=== PATIENT | female | born 1955 | race Caucasian/White ===

== ENCOUNTER 2017-02-19 20:21 | Emergency (ER) | payer OTHER ==
[~2017-02-19] VITALS: Ht 167.6 cm; Wt 64.9 kg
[~2017-02-19 20:21] MED LIST: ALBU0.0952 IH; CARI350T PO; FLUT1DSK2 IH; HYDR25TA PO; SYN.025 PO; TEMA15CA24 PO; [UNRECOGNIZED DRUG - CODE] PO; [UNRECOGNIZED DRUG - REMARK]
[2017-02-19 20:44] VITALS: BP 100/58
--- NOTE | 2017-02-19 22:10 | NUR ---
TO MARJAN SINCLAIR FROM ER HECTOR
--- NOTE | 2017-02-19 22:15 | NUR ---
PT IS 61/F BIBA C/O POSSIBLE ALLERGIC REACTION x 1800. PT STATES SHE WAS AT THE [facility] OFFICE AND RECIEVED AN ABX SHOT AND HAS TAKEN RX OF LEVOFLOXIN 500MG TAB. STATES SHE MADE IT HOME AND STARTED FEELING HOT AND PASSED OUT. DENIES D; SKIN IS WARM/DRY; AAOX4 WITH EVEN AND STEADY GAIT; LUNGS CLEAR BL; HR EVEN AND REGULAR; PT DENIES ANY FEVER, CP, SOB, OR COUGH AT THIS TIME; PATIENT STATES PAIN OF 8/10 AT THIS TIME; VSS; PATIENT POSITIONED FOR COMFORT.
[2017-02-19] MEDS ORDERED: NACL 0.9% 1,000 ML IV ONE (23:00)
[2017-02-19] MEDS ORDERED: ONDANSETRON 4 MG/2 ML VIAL IVP ONE (23:00)
--- NOTE | 2017-02-19 23:00 | NUR ---
MOVED TO ER BED 3
--- NOTE | 2017-02-19 23:05 | NUR ---
PT TAKEN TO X-RAY VIA WHEELCHAIR
[2017-02-19] MEDS ORDERED: METOCLOPRAMIDE 10 MG/2 ML INJ VIAL IVP ONE (23:10)
--- NOTE | 2017-02-19 23:40 | NUR ---
MOVED TO ER BED 8
[2017-02-19 23:50] LABS: HEMATOCRIT 42.8 % (36-48); HEMOGLOBIN 14.3 g/dL (12.0-16.0); MEAN CORPUSCULAR HEMOGLOBIN 31 pg (27-31); MEAN CORPUSCULAR HGB CONC 33 g/dL (33-37); MEAN CORPUSCULAR VOLUME 92 fL (80-94); PLATELET COUNT (AUTO) 517 K/uL (140-450); RED BLOOD CELL COUNT(AUTO) 4.67 MIL/uL (4.20-5.40); RED CELL DISTRIBUTION WIDTH 12.6 % (11.6-13.7); WHITE BLOOD COUNT (AUTO) 25.8 K/uL (4.8-10.8)
[2017-02-19 23:58] LABS: BAND % (MANUAL) 9 % (0-8); LYMPHOCYTES % (MANUAL) 5 % (20-46); MONOCYTES % (MANUAL) 5 % (5-12); NEUTROPHILS % (MANUAL) 81 (43-65)
[2017-02-20 00:06] LABS: ANION GAP 14.8 (8-16); CALCIUM 8.5 mg/dL (8.5-10.1); CARBON DIOXIDE 28.5 mmol/L (21-32); CREATININE 0.9 mg/dL (0.6-1.3); POTASSIUM 3.3 mmol/L (3.5-5.1)
[2017-02-20 00:11] LABS: ALBUMIN 3.8 g/dL (3.4-5.0); TOTAL BILIRUBIN 0.1 mg/dL (0.0-1.0); TOTAL PROTEIN, SERUM 7.8 g/dL (6.4-8.2)
[2017-02-20 00:13] LABS: INR 1.1 (0.8-1.2); PARTIAL THROMBOPLASTIN TIME 22.4 secs (22-35.6); PROTHROMBIN TIME 10.5 secs (10.8-13.4)
[2017-02-20 00:45] VITALS: BP 114/62
--- NOTE | 2017-02-20 00:45 | NUR ---
Patient discharged with v/s stable. Written and verbal after care instructions given and explained. Patient verbalized understanding. Ambulatory with steady gait. All questions addressed prior to discharge. Advised to follow up with PMD.
== END 2017-02-20 00:45 | disposition home or self-care (01) ==
LOC: MED 20:21
DX: T50.995A Adverse effect of other drugs, medicaments and biological substances, initial encounter (principal); J45.909 Unspecified asthma, uncomplicated; I10 Essential (primary) hypertension; Z88.6 Allergy status to analgesic agent; Z79.899 Other long term (current) drug therapy; Y92.89 Other specified places as the place of occurrence of the external cause
CPT/HCPCS: 36415; 71010; 80053; 85025; 85610; 85730; 96374; 99285; J2765; J7030

== ENCOUNTER 2017-07-03 18:38 | Inpatient (IN) | payer OTHER ==
[~2017-07-03] VITALS: Ht 167.6 cm; Wt 84.4 kg
[2017-07-03] MEDS: NACL 0.9% 1,000 ML IV SCH (00:30)
--- NOTE | 2017-07-03 18:38 | NUR ---
Patient was BIBA at this time.
[2017-07-03 18:48] VITALS: BP 94/63
--- NOTE | 2017-07-03 19:39 | NUR ---
61 Y PT BIBA FOR EVALUATION OF ALLERGIC REACTION. PT STATES SHE TOOK LEVAQUIN AND IMMEDIATELY BROKE OUT IN HIVES AND BECAME SOB. HX HTN, FIBROMYALGIA AND RECENT DX OF PNEUMONIA. PT DENIES ANY N/V/D, CP AT THE MOMENT. PT AAOX4.
--- NOTE | 2017-07-03 19:39 | NUR ---
PT STATES HER DELIVERED EPIPEN IM TO PT AT HOME WHEN RASH AND HIVES BEGAN TO SURFACE.
[2017-07-03] MEDS ORDERED: methylPREDNISolone SS 125 MG in WATER STERILE 2 ML IV ONE (20:05)
[2017-07-03] MEDS ORDERED: KETOROLAC 30 MG/ML VIAL IVP ONE (20:05)
--- NOTE | 2017-07-03 20:40 | NUR ---
X-Ray at bedside.
--- NOTE | 2017-07-03 20:45 | NUR ---
XRAY JUST LEFT BEDSIDE
[2017-07-03] MEDS ORDERED: AZITHROMYCIN 500 MG in DEXTROSE 5% 250 ML IV ONE (20:50)
[2017-07-03] MEDS ORDERED: PIPERACILLIN/TAZOBACTAM 3.375 GM in DEXTROSE 5% 50 ML IV ONE (20:50)
--- NOTE | 2017-07-03 20:56 | NUR ---
Fanta dvei in ED - 07/03/17 at 2059 by ZI PT LEFT TO CT VIA WC ACCOMPANIED BY TEST FIXTURE ASSEMBLER
[2017-07-03] MEDS ORDERED: PIPERACILLIN/TAZOBACTAM 3.375 GM VIAL IV ONE (21:08)
[2017-07-03 21:36] LABS: HEMATOCRIT 41.8 % (36-48); HEMOGLOBIN 13.9 g/dL (12.0-16.0); MEAN CORPUSCULAR HEMOGLOBIN 30 pg (27-31); MEAN CORPUSCULAR HGB CONC 33 g/dL (33-37); MEAN CORPUSCULAR VOLUME 90 fL (80-94); PLATELET COUNT (AUTO) 514 K/uL (140-450); RED BLOOD CELL COUNT(AUTO) 4.64 MIL/uL (4.20-5.40); RED CELL DISTRIBUTION WIDTH 12.2 % (11.6-13.7); WHITE BLOOD COUNT (AUTO) 24.1 K/uL (4.8-10.8)
[2017-07-03] MEDS ORDERED: AZITHROMYCIN 500 MG INJ VIAL IV ONE (21:40)
[2017-07-03 21:45] LABS: ANION GAP 13.6 (8-16); CARBON DIOXIDE 26.5 mmol/L (21-32); CREATININE 0.9 mg/dL (0.6-1.3); POTASSIUM 3.1 mmol/L (3.5-5.1)
[2017-07-03] MEDS ORDERED: ONDANSETRON 4 MG/2 ML VIAL IM/IVP PRN (21:50)
[2017-07-03] MEDS ORDERED: DOCUSATE SODIUM 100 MG GELCAP PO PRN (21:50)
[2017-07-03] MEDS ORDERED: ACETAMINOPHEN 325 MG TAB PO PRN (21:50)
[2017-07-03] MEDS ORDERED: ALBUTEROL SULFATE/IPRATROPIU 3 ML SOL IH PRN (21:50)
[2017-07-03] MEDS ORDERED: KETOROLAC 30 MG/ML VIAL IVP PRN (21:50)
[2017-07-03 21:52] LABS: ALBUMIN 3.8 g/dL (3.4-5.0); LYMPHOCYTES % (MANUAL) 6 % (20-46); MONOCYTES % (MANUAL) 5 % (5-12); PROMYELOCYTES % 1 % (0-0); TOTAL BILIRUBIN 0.2 mg/dL (0.0-1.0)
[2017-07-03] MEDS ORDERED: NON-FORMULARY ITEM (Fluticasone/Salmeterol* (Advair 250-50 Diskus*) 1 DSK) IH SCH (23:00)
[2017-07-03] MEDS ORDERED: ALBUTEROL 0.09 MG IH SCH (23:00)
[2017-07-03] MEDS ORDERED: TEMAZEPAM 15 MG CAP PO SCH (23:00)
[2017-07-03 23:19] LABS: PROTHROMBIN TIME 10.8 secs (10.8-13.4)
[2017-07-03 23:25] LABS: CHOL/HDL RATIO 8.6 (1-4.5); FREE T4 (FREE THYROXINE) 1.06 ng/dL (0.76-1.46); MAGNESIUM 1.8 mg/dL (1.8-2.4); PHOSPHORUS 3.4 mg/dL (2.5-4.9); THYROID STIMULATING HORMONE 4.83 uIU/mL (0.34-3.74)
[2017-07-04] VITALS (7 sets, daily range): BP systolic 132–160; BP diastolic 73–88
--- NOTE | 2017-07-04 00:04 | NUR ---
Patient will be admitted to care oF DR TROTTER. Admited to TELE 119A. Will go to room 119A. Belongings list completed. Report to JEFFY VILLAGOMEZ .
--- NOTE | 2017-07-04 00:10 | NUR ---
ADMITTED A 61 YEAR OLD FEMALE TO 119A WITH DX OF PNA, AWAKE,ALERT AND ORIENTED X4, NO RESPIRATORY DISTRESS NOTED. ORIENTED TO ROOM AND SURROUNDINGS, CALL LIGHT WITHIN REACH. INSTRUCTED TO CALL WHEN IF NEEDED ASSISTANCE.
[2017-07-04] MEDS ORDERED: PIPERACILLIN/TAZOBACTAM 3.375 GM VIAL IV ONE ×2 (00:36→05:35)
[2017-07-04] MEDS: PIPERACILLIN/TAZOBACTAM 3.375 GM in DEXTROSE 5% 50 ML IV SCH ×2 (00:51→06:07)
--- NOTE | 2017-07-04 01:22 | NUR ---
REQUESTED FOR PAIN,MEDICATED WITH TORADOL 15 MG ORDERED
[2017-07-04 01:45] LABS: APPEARANCE,URINE CLEAR (CLEAR); BILIRUBIN,URINE NEGATIVE (NEGATIVE); BLOOD, URINE 1+ (NEGATIVE); COLOR,URINE YELLOW (YELLOW); LEUKOCYTE ESTERASE ,URINE NEGATIVE (NEGATIVE); NITRITE, URINE NEGATIVE (NEGATIVE); UGLUCOSE 2+ (NEGATIVE)
[2017-07-04 02:18] LABS: RBC,URINE 0-5 (RARE) /HPF (0-5); WBC,URINE 0-5 (RARE) /HPF (0-5)
--- NOTE | 2017-07-04 02:30 | NUR ---
INSTRUCTED TO CALL IF NEEDED ASSISTANCE DUE TO RECENT FALL.
--- NOTE | 2017-07-04 03:26 | NUR ---
UP TO BR WITHOUT DIFFICULTY.
--- NOTE | 2017-07-04 04:00 | NUR ---
AWAKEN FOR V/S, NO RESPIRATORY DISTRESS BUT IS COUGHING ON AND OFF. NON PRODUCTIVE COUGH.
[2017-07-04] MEDS: PROMETHAZINE 6.25 MG/5 ML ORASYR PO PRN (06:17)
--- NOTE | 2017-07-04 06:17 | NUR ---
REQUESTED FOR COUGH, MEDICATED WITH PHENERGAN 12.5 ML PO
[2017-07-04 06:46] LABS: ANION GAP 17.6 (8-16); CARBON DIOXIDE 22.8 mmol/L (21-32); CREATININE 0.9 mg/dL (0.6-1.3); POTASSIUM 3.4 mmol/L (3.5-5.1)
[2017-07-04] MEDS ORDERED: KETOROLAC 30 MG/ML VIAL IVP PRN (07:23)
[2017-07-04] MEDS ORDERED: KETOROLAC 15 MG/ML VIAL IVP PRN (07:27)
--- NOTE | 2017-07-04 08:50 | NUR ---
AMBULATES ON HALLWAY WITHOUT ASSISTANCE. TOLERATED WELL. NO C/O PAIN. NO SOB, NOTED.
[2017-07-04] MEDS ORDERED: HYDROCHLOROTHIAZIDE 25 MG TAB PO SCH ×2 (09:00→17:55)
[2017-07-04] MEDS ORDERED: HYDROCHLOROTHIAZIDE 25 MG PO SCH (09:00)
[2017-07-04] MEDS ORDERED: [UNRECOGNIZED DRUG - OTHER] PO SCH (09:00)
[2017-07-04] MEDS ORDERED: ATROPINE SULF PO SCH (09:00)
[2017-07-04] MEDS: LEVOTHYROXINE 0.025 MG TAB PO SCH (09:05)
[2017-07-04] MEDS: CARISOPRODOL 350 MG TAB PO SCH (09:05)
[2017-07-04] MEDS: NICOTINE TRANSD SYS 14 MG/24 HR PATCH TD SCH (09:06)
--- NOTE | 2017-07-04 10:01 | NUR ---
PATIENT HAS BEEN SCREENED AND CATEGORIZED MODERATE NUTRITION RISK. PATIENT WILL BE SEEN WITHIN 3-5 DAYS OF ADMISSION. 07/06/17-07/08/[address]
[2017-07-04] MEDS ORDERED: PIPER/TAZO 3.375GM/D5W PREMIX 50 ML IV SCH (12:00)
[2017-07-04] MEDS: MORPHINE SULFATE 2 MG/ML SYR IVP PRN ×2 (12:46→20:47)
[2017-07-04] MEDS ORDERED: AZITHROMYCIN 250 MG TAB PO SCH (13:03)
[2017-07-04] MEDS ORDERED: FAMOTIDINE 20 MG TAB PO SCH (13:05)
[2017-07-04] MEDS ORDERED: LACTOBACILLUS RHAMNOSUS GG 1 EACH CAP PO SCH (13:06)
[2017-07-04] MEDS ORDERED: LORATADINE 10 MG TAB PO SCH (13:07)
[2017-07-04] MEDS ORDERED: MONTELUKAST SODIUM 10 MG TAB PO SCH (13:12)
[2017-07-04] MEDS: methylPREDNISolone SS 125 MG/2 ML VIAL IVP SCH ×2 (13:38→20:53)
[2017-07-04] MEDS: NACL 0.9% 1,000 ML IV SCH (14:29)
--- NOTE | 2017-07-04 16:50 | NUR ---
INFORMED DR. COOLEY THAT PT. BP AT 1630 WAS 160/88. NO C/O PAIN. NO ACUTE DISTRESS NOTED. NO ORDER RECEIVED.
--- NOTE | 2017-07-04 17:40 | NUR ---
REPORT GIVEN TO BRII PARTIDA. IVF INFUSING WELL. IN STABLE CONDITION. ALSO ENDORSED ABOUT LATEST VS AND DR. COOLEY WAS MADE AWARE.
--- NOTE | 2017-07-04 19:30 | NUR ---
ENDORSED PT TO SEAFOOD FARMER NURSE AT BEDSIDE FOR CONTINUITY OF CARE. IV BAG OF NS EMPTY. CHANGED NS BAG. IV INFUSING AT 60ML/HR LEFT FA 22G. PT IS GETTING BREATHING TREATMENT RIGHT NOW. PT IN STABLE CONDITION.
[2017-07-04] MEDS: ALBUTEROL SULFATE/IPRATROPIU 3 ML SOL IH SCH (19:31)
--- NOTE | 2017-07-04 19:35 | NUR ---
RECEIVED PT FROM BRII RN PT IS AAOX4 AMBULATORY IC ON LEFT ARM INFUSING WELL RESP THERAPY IS HERE AND GIVE BREATHING TX ON TELEMETRY SR RELATIVES AT BED SIDE INITIAL ASSESSMENT DONE
--- NOTE | 2017-07-04 22:00 | NUR ---
PT RESTING ON BED ON TELMETRY SR
[2017-07-04] MEDS: TEMAZEPAM 15 MG CAP PO PRN (23:19)
[2017-07-05] VITALS: BP 135/70
--- NOTE | 2017-07-05 01:00 | NUR ---
PT RESTING ON BED NOT SOB NOTED ON TELEMETRY SR IV ON LEFT FA INFUSING WELL
--- NOTE | 2017-07-05 01:18 | NUR ---
PT REFUSED TX, SHE WILL CALL IF NEEDED, SHE WANTS TO SLEEP
[2017-07-05 04:00] VITALS: BP 156/79
--- NOTE | 2017-07-05 04:00 | NUR ---
SPONGE BTH GIVEN LINEN CHANGED DENIES ANY DISTRESS ON TELMETRY SR AMBULATORY
[2017-07-05] MEDS: MORPHINE SULFATE 2 MG/ML SYR IVP PRN ×3 (05:44→19:33)
[2017-07-05] MEDS: methylPREDNISolone SS 125 MG/2 ML VIAL IVP SCH (05:51)
[2017-07-05 05:57] LABS: BASOPHILS # (AUTO) 0.1 K/uL (0.00-0.22); BASOPHILS % (AUTO) 0.7 % (0.0-2.0); EOSINOPHILS % (AUTO) 0.2 % (0.0-4.0); HEMATOCRIT 35.3 % (36-48); HEMOGLOBIN 12.1 g/dL (12.0-16.0); LYMPHOCYTES # (AUTO) 1.9 K/uL (2.5-16.5); LYMPHOCYTES % (AUTO) 11.1 % (20.5-51.1); MEAN CORPUSCULAR HEMOGLOBIN 31 pg (27-31); MEAN CORPUSCULAR HGB CONC 34 g/dL (33-37); MEAN CORPUSCULAR VOLUME 90 fL (80-94); MONOCYTES # (AUTO) 0.5 K/uL (0.8-1.0); MONOCYTES % (AUTO) 2.7 % (1.7-9.3); NEUTROPHILS # (AUTO) 14.3 K/uL (1.8-7.7); NEUTROPHILS % (AUTO) 85.3 % (42.2-75.2); PLATELET COUNT (AUTO) 442 K/uL (140-450); RED BLOOD CELL COUNT(AUTO) 3.92 MIL/uL (4.20-5.40); RED CELL DISTRIBUTION WIDTH 12.1 % (11.6-13.7)
[2017-07-05 06:42] LABS: MAGNESIUM 1.9 mg/dL (1.8-2.4); PHOSPHORUS 3.5 mg/dL (2.5-4.9)
[2017-07-05] MEDS: ALBUTEROL SULFATE/IPRATROPIU 3 ML SOL IH SCH ×4 (06:45→18:41)
[2017-07-05 07:09] LABS: ANION GAP 16.1 (8-16); CARBON DIOXIDE 23.2 mmol/L (21-32); CREATININE 0.8 mg/dL (0.6-1.3); POTASSIUM 3.3 mmol/L (3.5-5.1)
[2017-07-05] MEDS: NACL 0.9% 1,000 ML IV SCH ×2 (07:09→23:49)
[2017-07-05 07:23] LABS: WHITE BLOOD COUNT (AUTO) 16.8 K/uL (4.8-10.8)
--- NOTE | 2017-07-05 07:36 | NUR ---
AFTER LPAIN MDIC GIVEN PT REMAIN STBLD NOT PAIN AND ON TELEMETRY SR PT IS ENDORSED TO GREGORIO FOR CONTINUITY OF CARE
--- NOTE | 2017-07-05 07:37 | NUR ---
RECEIVED BEDSIDE REPORT FROM GET VILLAGOMEZ. PT AWAKE AND ALERT, NO SIGNS OF ACUTE DISTRESS. BOWEL SOUNDS ACTIVE IN ALL 4 QUADRANTS. AMBULATORY WITH BRP. ON ROOM AIR, RECEIVES BREATHING TREATMENTS. IV PATENT AND ASYMPTOMATIC. PATIENT DENIES PAIN AT THIS TIME. RE-ORIENTED TO HOSPITAL AND TO UNIT, PATIENT VERBALIZES UNDERSTANDING. BED IN LOW POSITION WITH BILATERAL HALF SIDE RAILS UP, CALL LIGHT WITHIN REACH. WILL CONTINUE TO MONITOR.
[2017-07-05 08:00] VITALS: BP 150/80
[2017-07-05 08:20] LABS: T4 (THYROXINE) 7.8 ug/dL (4.5-12.0)
--- NOTE | 2017-07-05 08:40 | NUR ---
RECEIVED CRITICAL LACTIC ACID OF 2.9, INFORMED DR GABRIEL. WILL AWAIT FOR NEW ORDERS.
[2017-07-05] MEDS: NICOTINE TRANSD SYS 14 MG/24 HR PATCH TD SCH ×2 (08:50→22:43)
[2017-07-05] MEDS: LORATADINE 10 MG TAB PO SCH (08:50)
[2017-07-05] MEDS: CARISOPRODOL 350 MG TAB PO SCH (08:50)
[2017-07-05] MEDS: AZITHROMYCIN 250 MG TAB PO SCH (08:51)
[2017-07-05] MEDS: FAMOTIDINE 20 MG TAB PO SCH (08:51)
[2017-07-05] MEDS: LACTOBACILLUS RHAMNOSUS GG 1 EACH CAP PO SCH (08:51)
[2017-07-05] MEDS: LEVOTHYROXINE 0.025 MG TAB PO SCH (08:51)
[2017-07-05] MEDS: HYDROCHLOROTHIAZIDE 25 MG TAB PO SCH (08:51)
[2017-07-05] MEDS: MONTELUKAST SODIUM 10 MG TAB PO SCH (08:52)
--- NOTE | 2017-07-05 09:40 | NUR ---
RECEIVED CRITICAL LACTIC ACID 6.0, INFORMED DR GARCIA. NO CHANGE IN ORDERS AT THIS TIME.
--- NOTE | 2017-07-05 09:55 | NUR ---
RECEIVED NEW ORDERS FROM DR GABRIEL, NOTED, WILL CARRY OUT.
[2017-07-05] MEDS ORDERED: POTASSIUM CHLORIDE 40 MEQ, LIDOCAINE 1% 25 MG in NACL 0.9% 250 ML IV SCH (11:00)
[2017-07-05 12:00] VITALS: BP 156/89
[2017-07-05] MEDS: PROMETHAZINE 6.25 MG/5 ML ORASYR PO PRN (12:13)
[2017-07-05] MEDS: methylPREDNISolone SS 40 MG/ML VIAL IVP SCH ×2 (12:13→21:16)
--- NOTE | 2017-07-05 12:16 | NUR ---
PT COMPLAINING OF COUGH, ADMINISTERED PHENERGAN ORAL ORDERED. WILL CONTINUE TO MONITOR.
--- NOTE | 2017-07-05 12:51 | NUR ---
pt refused rx at this time no resp distress noted at this time med returned
--- NOTE | 2017-07-05 14:29 | NUR ---
RECEIVED ORDER FOR AM LABS FROM DR GABRIEL FOR TOMORROW 07/06/17.
[2017-07-05] MEDS ORDERED: LISINOPRIL 10 MG TAB PO SCH (15:15)
[2017-07-05 16:00] VITALS: BP 158/83
[2017-07-05] MEDS ORDERED: guaiFENesin 600 MG TABER PO SCH (16:30)
--- NOTE | 2017-07-05 19:10 | NUR ---
PT AWAKE AND ALERT, NO SIGNS OF ACUTE DISTRESS. ENDORSED TO QUALITY ASSURANCE TESTER NURSE FOR CONTINUITY OF CARE.
--- NOTE | 2017-07-05 19:30 | NUR ---
RECEIVED BEDSIDE REPORT FROM DAY NURSE. PT AWAKE AND ALERT, NO SIGNS OF ACUTE DISTRESS. BOWEL SOUNDS ACTIVE IN ALL 4 QUADRANTS. DC IS ON ROOM AIR, RECEIVES BREATHING TREATMENTS. IV PATENT AND ASYMPTOMATIC. PATIENT DENIES PAIN AT THIS TIME. RE-ORIENTED TO HOSPITAL AND TO UNIT, PATIENT VERBALIZES UNDERSTANDING. BED IN LOW POSITION WITH BILATERAL HALF SIDE RAILS UP, CALL LIGHT WITHIN REACH. WILL CONTINUE TO MONITOR.
[2017-07-05 20:00] VITALS: BP 155/91
[2017-07-05] MEDS: guaiFENesin 600 MG TABER PO SCH (21:15)
--- NOTE | 2017-07-05 21:35 | NUR ---
PTS DUE MEDICATIONS GIVEN, PT TOLERATED WELL. ALL SAFETY PRECAUTIONS MET, CALL LIGHT WITHIN REACH.
[2017-07-05] MEDS ORDERED: NICOTINE TRANSD SYS 14 MG/24 HR PATCH TD SCH (22:20)
[2017-07-05] MEDS: TEMAZEPAM 15 MG CAP PO PRN (22:49)
[2017-07-06] VITALS: BP 172/95
--- NOTE | 2017-07-06 00:30 | NUR ---
PTS B/P 172/95, PT IS RESTING COMFORTABLY IN BED WITH NO S/S OF DISTRESS. PT STATES HER BP IS NORMALLY HIGH. DR. KAN AWARE, WILL CONTINUE TO MONITOR.
[2017-07-06] MEDS: ALBUTEROL SULFATE/IPRATROPIU 3 ML SOL IH SCH ×4 (01:20→19:01)
[2017-07-06] MEDS: MORPHINE SULFATE 2 MG/ML SYR IVP PRN ×4 (01:23→20:17)
[2017-07-06] MEDS ORDERED: MORPHINE SULFATE 2 MG/ML SYR IVP PRN (03:40)
[2017-07-06 04:00] VITALS: BP 157/97
[2017-07-06] MEDS: methylPREDNISolone SS 40 MG/ML VIAL IVP SCH (06:06)
[2017-07-06 06:26] LABS: BASOPHILS # (AUTO) 0.2 K/uL (0.00-0.22); BASOPHILS % (AUTO) 0.8 % (0.0-2.0); EOSINOPHILS % (AUTO) 0.1 % (0.0-4.0); HEMOGLOBIN 12.9 g/dL (12.0-16.0); LYMPHOCYTES # (AUTO) 2.2 K/uL (2.5-16.5); LYMPHOCYTES % (AUTO) 11.3 % (20.5-51.1); MEAN CORPUSCULAR HEMOGLOBIN 30 pg (27-31); MEAN CORPUSCULAR HGB CONC 34 g/dL (33-37); MEAN CORPUSCULAR VOLUME 89 fL (80-94); MONOCYTES # (AUTO) 0.3 K/uL (0.8-1.0); MONOCYTES % (AUTO) 1.7 % (1.7-9.3); NEUTROPHILS # (AUTO) 17.1 K/uL (1.8-7.7); NEUTROPHILS % (AUTO) 86.1 % (42.2-75.2); PLATELET COUNT (AUTO) 481 K/uL (140-450); RED BLOOD CELL COUNT(AUTO) 4.26 MIL/uL (4.20-5.40); RED CELL DISTRIBUTION WIDTH 12.6 % (11.6-13.7)
[2017-07-06 06:46] LABS: MAGNESIUM 1.8 mg/dL (1.8-2.4); PHOSPHORUS 3.4 mg/dL (2.5-4.9)
[2017-07-06 07:04] LABS: ANION GAP 16.4 (8-16); CARBON DIOXIDE 25.5 mmol/L (21-32); CREATININE 0.9 mg/dL (0.6-1.3)
[2017-07-06 07:16] LABS: POTASSIUM 2.9 mmol/L (3.5-5.1)
[2017-07-06 07:28] LABS: WHITE BLOOD COUNT (AUTO) 19.8 K/uL (4.8-10.8)
--- NOTE | 2017-07-06 07:39 | NUR ---
endorsed plan of care to day nurse for continuity of care, pt in stable condition no s/s of distress noted.
--- NOTE | 2017-07-06 07:40 | NUR ---
RECEIVED REPORT FROM NIGHT NURSE AT PT BEDSIDE. PT IS ALERT AND ORIENTED. DENIES DISCOMFORT. NO S/S ACUTE RESPIRATORY DISTRESS. IV SITE PATENT AND INTACT. WHEEZES HEARD BILATERALLY. CALL LIGHT WITHIN REACH.
[2017-07-06] MEDS ORDERED: POTASSIUM CHLORIDE 10 MEQ TABER PO SCH (07:43)
[2017-07-06 08:00] VITALS: BP 159/94
[2017-07-06] MEDS: HYDROCHLOROTHIAZIDE 25 MG TAB PO SCH (08:25)
[2017-07-06] MEDS: LEVOTHYROXINE 0.025 MG TAB PO SCH (08:25)
[2017-07-06] MEDS: LACTOBACILLUS RHAMNOSUS GG 1 EACH CAP PO SCH (08:25)
[2017-07-06] MEDS: guaiFENesin 600 MG TABER PO SCH ×2 (08:26→20:16)
[2017-07-06] MEDS: FAMOTIDINE 20 MG TAB PO SCH (08:26)
[2017-07-06] MEDS: CARISOPRODOL 350 MG TAB PO SCH (08:26)
[2017-07-06] MEDS: AZITHROMYCIN 250 MG TAB PO SCH (08:26)
[2017-07-06] MEDS: MONTELUKAST SODIUM 10 MG TAB PO SCH (08:26)
[2017-07-06] MEDS: NICOTINE TRANSD SYS 14 MG/24 HR PATCH TD SCH (08:27)
[2017-07-06] MEDS: LORATADINE 10 MG TAB PO SCH (08:28)
[2017-07-06] MEDS ORDERED: POTASSIUM CHLORIDE 40 MEQ, LIDOCAINE 1% 25 MG in NACL 0.9% 250 ML IV SCH (08:30)
[2017-07-06] MEDS ORDERED: LISINOPRIL 10 MG TAB PO SCH (09:00)
--- NOTE | 2017-07-06 09:33 | NUR ---
PT C/O PAIN, MEDICATED ORDERED. NO S/S OF ACUTE DISTRESS. RESTING IN BED.
[2017-07-06 12:00] VITALS: BP 158/87
--- NOTE | 2017-07-06 12:00 | NUR ---
PT SLEEPING, NO S/S OF ACUTE DISTRESS NOTED. CALL LIGHT WITHIN REACH.
--- NOTE | 2017-07-06 14:28 | NUR ---
PT C/O PAIN, MEDICATED ORDERED. NO S/S OF ACUTE DISTRESS. SITTING UP IN BED. DENIES N/V. NO S/S OF RESPIRATORY DISTRESS NOTED.
--- NOTE | 2017-07-06 15:51 | NUR ---
PATIENT BP ELEVATED AT 180/98, NO S/S OF ACUTE DISTRESS. DR. GABRIEL MADE AWARE. MD SPOKE WITH PATIENT REGARDING MEDICATIONS CAUSING ELEVATED BP. NO NEW ORDERS AT THIS TIME, MD TO ORDER.
[2017-07-06 16:00] VITALS: BP 180/98
[2017-07-06] MEDS ORDERED: LOSARTAN 25 MG TAB PO SCH (16:00)
[2017-07-06] MEDS: NACL 0.9% 1,000 ML IV SCH (16:32)
--- NOTE | 2017-07-06 16:42 | NUR ---
K PAD GIVEN TO PATIENT, PATIENT AT BEDSIDE. MADE AWARE OF PLANS AND PROCEDURES. MEDICATED ORDERED WITH COZAAR FOR INCREASED BP. WILL CONTINUE TO MONITOR.
[2017-07-06] MEDS: LABETALOL 100 MG/20 ML VIAL IV PRN (16:52)
--- NOTE | 2017-07-06 17:02 | NUR ---
PT MEDICATED WITH 10MG IVP LABETALOL ORDERED. WILL CONTINUE TO MONITOR.
--- NOTE | 2017-07-06 18:01 | NUR ---
DR. COOLEY MADE AWARE OF BP 165/86 AFTER ADMINISTRATION OF LABETALOL AND COZAAR. JHAVERI TO PLACE NEW ORDERS. NO S/S OF ACUTE DISTRESS, WILL CONTINUE TO MONITOR.
--- NOTE | 2017-07-06 19:14 | NUR ---
SBAR REPORT GIVEN TO HERNANDO STOKES AT PT BEDSIDE. PT BP 144/76. RECEIVED BREATHING TREATMENT AT BEDSIDE. NO S/S OF ACUTE DISTRESS NOTED.
--- NOTE | 2017-07-06 19:15 | NUR ---
RECEIVED PATIENT REPORT AT BEDSIDE FROM MORNING NURSE. PATIENT IS AWAKE, ALERT, AND ORIENTED. NO SIGNS AND SYMPTOMS OF DISTRESS NOTED. PATIENT'S IS AT BEDSIDE. BED IN LOWEST POSITION, SEMI FOWLERS AND CALL LIGHT WITHIN REACH WILL CONTINUE TO MONITOR.
[2017-07-06 20:00] VITALS: BP 142/82
[2017-07-06] MEDS: TEMAZEPAM 15 MG CAP PO PRN (21:33)
[2017-07-07] VITALS: BP 172/86
[2017-07-07] MEDS: LABETALOL 100 MG/20 ML VIAL IV PRN (00:10)
--- NOTE | 2017-07-07 00:21 | NUR ---
PATIENT'S BP: 172/86. PRN LABETALOL 10MG GIVEN.
[2017-07-07] MEDS: ALBUTEROL SULFATE/IPRATROPIU 3 ML SOL IH SCH ×4 (01:00→18:53)
--- NOTE | 2017-07-07 01:10 | NUR ---
RECHECKED PATIENT'S BLOOD PRESSURE AND PULSE RATE. BP: 140/75 VA: 70. NO SIGNS AND SYMPTOMS OF DISTRESS NOTED. WILL CONTINUE TO MONITOR.
--- NOTE | 2017-07-07 01:11 | NUR ---
PATIENT REFUSED BREATHING TREATMENT, WOULD LIKE THE ONE SCHEDULED AT 5AM. RT NOTIFIED Addendum: 07/07/17 at 0232 by Boaz Baig RN NEXT BREATHING TREATMENT SCHEDULED AT 0700 NOT 0500
[2017-07-07] MEDS: MORPHINE SULFATE 2 MG/ML SYR IVP PRN ×4 (02:23→20:44)
[2017-07-07 04:00] VITALS: BP 139/74
[2017-07-07 06:54] LABS: ANION GAP 11.5 (8-16); CARBON DIOXIDE 29.4 mmol/L (21-32); CREATININE 0.9 mg/dL (0.6-1.3)
[2017-07-07 07:04] LABS: POTASSIUM 2.9 mmol/L (3.5-5.1)
--- NOTE | 2017-07-07 07:09 | NUR ---
CRITICAL LAB VALUE RECEIVED FROM ABIODUN OLVERA. PATIENT'S POTASSIUM-2.9. DR. PARTIDA NOTIFIED, ORDERS RECEIVED.
--- NOTE | 2017-07-07 07:25 | NUR ---
RECEIVED REPORT FROM NIGHT NURSE AT BEDSIDE. PT IS SLEEPING COMFORTABLY AT THIS TIME. BREATHING EVEN AND UNLABORED. NO SIGNS OF SOB OR DISTRESS NOTED AT THIS TIME. BED IN LOWEST POSITION AND CALL LIGHT WITHIN REACH. WILL CONTINUE TO MONITOR.
--- NOTE | 2017-07-07 07:25 | NUR ---
PATIENT REPORT GIVEN AT BEDSIDE TO MORNING NURSE. PATIENT IS IN STABLE CONDITION.
[2017-07-07 07:29] LABS: BASOPHILS # (AUTO) 0.8 K/uL (0.00-0.22); BASOPHILS % (AUTO) 4.3 % (0.0-2.0); EOSINOPHILS % (AUTO) 0.1 % (0.0-4.0); HEMATOCRIT 37.5 % (36-48); HEMOGLOBIN 12.8 g/dL (12.0-16.0); LYMPHOCYTES # (AUTO) 5.8 K/uL (2.5-16.5); LYMPHOCYTES % (AUTO) 32.2 % (20.5-51.1); MEAN CORPUSCULAR HEMOGLOBIN 30 pg (27-31); MEAN CORPUSCULAR HGB CONC 34 g/dL (33-37); MEAN CORPUSCULAR VOLUME 89 fL (80-94); MONOCYTES # (AUTO) 1.4 K/uL (0.8-1.0); MONOCYTES % (AUTO) 7.7 % (1.7-9.3); NEUTROPHILS % (AUTO) 55.7 % (42.2-75.2); PLATELET COUNT (AUTO) 464 K/uL (140-450); RED BLOOD CELL COUNT(AUTO) 4.21 MIL/uL (4.20-5.40); RED CELL DISTRIBUTION WIDTH 12.4 % (11.6-13.7)
[2017-07-07 07:46] VITALS: BP 145/77
[2017-07-07] MEDS: MONTELUKAST SODIUM 10 MG TAB PO SCH (08:14)
[2017-07-07] MEDS: AZITHROMYCIN 250 MG TAB PO SCH (08:15)
[2017-07-07] MEDS: HYDROCHLOROTHIAZIDE 25 MG TAB PO SCH (08:15)
[2017-07-07] MEDS: guaiFENesin 600 MG TABER PO SCH ×2 (08:15→20:29)
[2017-07-07] MEDS: LORATADINE 10 MG TAB PO SCH (08:16)
[2017-07-07] MEDS: LEVOTHYROXINE 0.025 MG TAB PO SCH (08:16)
[2017-07-07] MEDS: FAMOTIDINE 20 MG TAB PO SCH (08:16)
[2017-07-07] MEDS: NACL 0.9% 1,000 ML IV SCH (08:17)
[2017-07-07] MEDS: LACTOBACILLUS RHAMNOSUS GG 1 EACH CAP PO SCH (08:18)
[2017-07-07] MEDS: CARISOPRODOL 350 MG TAB PO SCH (08:18)
[2017-07-07] MEDS: NICOTINE TRANSD SYS 14 MG/24 HR PATCH TD SCH (08:20)
[2017-07-07] MEDS ORDERED: POTASSIUM CHLORIDE 20 MEQ, LIDOCAINE 1% 25 MG in NACL 0.9% 250 ML IV SCH (08:30)
[2017-07-07] MEDS ORDERED: LOSARTAN 25 MG TAB PO SCH (09:00)
[2017-07-07] MEDS ORDERED: LOSARTAN 50 MG TAB PO SCH ×2 (09:00→21:00)
--- NOTE | 2017-07-07 10:22 | NUR ---
PT VERBALIZED THAT THE PREVIOUSLY GIVEN PAIN MEDICATION WASN'T EFFECTIVE AND SHE IS STILL HAVING HER NECK PAIN. DR. PARTIDA MADE AWARE. TO PUT AN ORDER.
[2017-07-07] MEDS ORDERED: CARISOPRODOL 350 MG TAB PO SCH ×2 (11:00→13:00)
[2017-07-07 11:45] VITALS: BP 132/83
--- NOTE | 2017-07-07 12:46 | NUR ---
PT VERBALIZED THAT PAIN ON HER NECK STILL THE SAME AND SHE COMPLAINS ON HEADACHE 07/17. PT REFUSED TO TAKE TYLENOL FOR HEADACHE. DR PARTIDA TO CHECK AND PUT AN ORDER.
--- NOTE | 2017-07-07 13:57 | NUR ---
ASLEEP EASILY AWAKENS PATIENT REFUSING HHN THERAPY AT THIS TIME PATIENT C/O NAUSEA DONOVAN/HERNANDO NOTIFIED
--- NOTE | 2017-07-07 14:15 | NUR ---
CHECKED PT, COMPLAINS OF HEADACHE. DENIES NAUSEA. WILL MEDICATE PRN MORPHINE FOR HEADACHE 07/17.
--- NOTE | 2017-07-07 14:40 | NUR ---
07/07/17 RD INITIAL ASSESSMENT COMPLETED. PLEASE REFER TO NUTRITIONAL ASSESSMENT UNDER CARE ACTIVITY FOR ESTIMATED NUTRITIONAL NEEDS. RD RECOMMENDATIONS: 1- RECOMMEND CONTINUE REGULAR DIET. 2- RD F/U 3-5 DAYS; MODERATE RISK. OLU SALVADOR MBA, RD
[2017-07-07 16:00] VITALS: BP 125/65
[2017-07-07 16:15] LABS: ANION GAP 16.3 (8-16); CARBON DIOXIDE 26.1 mmol/L (21-32); CREATININE 1.1 mg/dL (0.6-1.3); POTASSIUM 3.4 mmol/L (3.5-5.1)
--- NOTE | 2017-07-07 16:41 | NUR ---
PT ASLEEP AT THIS TIME. NO SIGNS AND SYMPTOMS OF ACUTE PAIN OR DISCOMFORT NOTED AT THIS TIME.
[2017-07-07] MEDS ORDERED: AZIT250T8 PO (17:55)
[2017-07-07] MEDS ORDERED: NICO14TD30 TD (17:55)
[2017-07-07] MEDS ORDERED: GUAI-791 PO (17:55)
[2017-07-07] MEDS ORDERED: POTA10TE30 PO (17:55)
[2017-07-07] MEDS ORDERED: LOSA50TA1 PO (17:55)
[2017-07-07] MEDS ORDERED: ORE25 PO (17:55)
--- NOTE | 2017-07-07 18:26 | NUR ---
PT WANTED TO TAKE A SHOWER. PROVIDED WITH SHOWER NEEDS. ASSISTED TO SHOWER ROOM PER ALUMINUM SIDING MECHANIC. AT BEDSIDE. NO SOB NOTED. DENIES ANY PAIN OR DISCOMFORT AT THIS TIME.
--- NOTE | 2017-07-07 18:27 | NUR ---
TELEBOX REMOVED, IV SITE COVERED, BEFORE PT GOES TO SHOWER ROOM.
--- NOTE | 2017-07-07 19:23 | NUR ---
PT KEPT CLEAN, DRY AND COMFORTABLE, PT STILL DRYING HER HAIR FOR SHOWER. AND JUST FINISHED BREATHING TX. DOESN'T WANT TO SIGN DISCHARGE PAPERS YET, BECAUSE SHE STILL WANTS TO TAKE MORPHINE FOR HER NECK PAIN BEFORE DISCHARGE. EXPLAINED TO PT THAT WHEN SHE GETS MORPHINE SHE NEEDS TO STAY ANOTHER HOUR FOR OBSERVATION AND REASSESSMENT FOR PAIN. PT VERBALIZED UNDERSTANDING. AND SHE SAID SHE WANTS TO GO HOME AROUND 9PM. NEEDS ATTENDED. ENDORSED TO NEXT SHIFT, ON STABLE CONDITION. FOR CONTINUITY OF CARE.
--- NOTE | 2017-07-07 19:24 | NUR ---
RECEIVED PATIENT REPORT FROM MORNING NURSE. PATIENT IS AWAKE ALERT AND ORIENTED. PATIENTS AT BEDSIDE. IV SITE NOTED ON LEFT FOREARM SALINE LOCKED. BED IN LOWEST POSITION. SIDE RAILS UP AND CALL LIGHT WITHIN REACH. WILL CONTINUE TO MONITOR.
[2017-07-07 20:00] VITALS: BP 143/95
[2017-07-07] MEDS ORDERED: IPRA3AMP IH (20:34)
--- NOTE | 2017-07-07 21:00 | NUR ---
DR. KAN ADDED MEDICATION TO PATIENT'S DISCHARGE MEDS
--- NOTE | 2017-07-07 21:42 | NUR ---
PATIENT DISCHARGED HOME. DISCHARGE INSTRUCTIONS AND PRESCRIPTIONS GIVEN. PATIENT VERBALIZED UNDERSTANDING AND SIGNED PAPERWORK. IV SITE DISCONTINUED, IV CANNULA INTACT. PATIENT LEFT WITH ALL HER BELONGINGS. PATIENT IS IN STABLE CONDITION. TITLE AGENT BROUGHT PATIENT VIA WHEELCHAIR TO PATIENT'S 'S CAR.
[2017-07-08] MEDS ORDERED: POTASSIUM CHLORIDE 10 MEQ TABER PO SCH (09:00)
[2017-07-08] MEDS ORDERED: HYDROCHLOROTHIAZIDE 25 MG TAB PO SCH (09:00)
== END 2017-07-07 21:42 | disposition home or self-care (01) | DRG 871 ==
LOC: MED 18:38 → MTU 21:45
PROVIDERS: ADMIT Family Medicine Sports Medicine; ATTEND Family Medicine Sports Medicine
DX: A41.9 Sepsis, unspecified organism (principal); J18.9 Pneumonia, unspecified organism; J44.0 Chronic obstructive pulmonary disease with (acute) lower respiratory infection; E87.8 Other disorders of electrolyte and fluid balance, not elsewhere classified; J45.901 Unspecified asthma with (acute) exacerbation; E87.1 Hypo-osmolality and hyponatremia; T88.6XXA Anaphylactic reaction due to adverse effect of correct drug or medicament properly administered, initial encounter; I10 Essential (primary) hypertension; E03.9 Hypothyroidism, unspecified; E66.9 Obesity, unspecified; F17.200 Nicotine dependence, unspecified, uncomplicated; T37.8X5A Adverse effect of other specified systemic anti-infectives and antiparasitics, initial encounter; M79.7 Fibromyalgia; R31.9 Hematuria, unspecified; J20.9 Acute bronchitis, unspecified; E87.6 Hypokalemia; Z68.30 Body mass index [BMI] 30.0-30.9, adult; Z88.6 Allergy status to analgesic agent; Z88.1 Allergy status to other antibiotic agents
CPT/HCPCS: 36415; 71010; 76770; 80048; 80053; 81001; 83036; 83605; 83735; 83880; 84100; 84436; 84439; 84443; 84479; 84702; 85025; 85610; 85730; 87040; 87081; 94640; 96365; 96367; 96375; 99285; J0456; J0696; J1885; J2001; J2270; J2543; J2920; J2930; J3480; J3490; J7030; J7060; J7620; Q0092

== ENCOUNTER 2019-02-21 18:38 | Emergency (ER) | payer OTHER ==
[~2019-02-21] VITALS: Ht 167.6 cm; Wt 69.1 kg
[~2019-02-21 18:38] MED LIST changes: +ALBU3SOL83 IH; +AZIT250T11 PO; +GUAI-791 PO; -HYDR25TA PO; +LOSA50TA1 PO; +NICO14TD30 TD; +ORE25 PO; +POTA10TE30 PO
[2019-02-21 18:46] VITALS: BP 141/94
--- NOTE | 2019-02-21 18:52 | NUR ---
PT AMBULATED TO LOBBY AT THIS TIME, VSS
--- NOTE | 2019-02-21 20:42 | NUR ---
PATIENT BROUGHT BACK TO TRIAGE STATES WORSE PAIN. AMB WITH STEADY GAIT. AAO.
--- NOTE | 2019-02-21 21:00 | NUR ---
C/O MECHANICAL SLIP AND FALL AT [facility] AT 1201 THIS MORNING. PT STATES SHE FELL ON COCCYX. PT DENIES DENIES HITTING HEAD OR LOC. PT REPORTS CONSTANT SHARP PAIN AT 10/10 IN POSTEROIR NECK, COCCYX, LT SHOULDER. PT STATES HER BODY HURTS FROM WAIST UP. MEDHX:HTN, CHRONIC FATIGUE, FIBROMYALGA, HERNIA SURGERY (2 MONTHS AGO)
[2019-02-21] MEDS ORDERED: fentaNYL 0.05 MG/ML VIAL IVP ONE (21:50)
--- NOTE | 2019-02-21 22:00 | NUR ---
XRAY AT BEDSIDE
--- NOTE | 2019-02-21 22:27 | NUR ---
PT REFUSING CT WITH CONTRAST AT THIS TIME EDMD MADE AWARE
[2019-02-21 22:37] LABS: BASOPHILS # (AUTO) 0.1 K/uL (0.00-0.22); BASOPHILS % (AUTO) 0.6 % (0.0-2.0); EOSINOPHILS # (AUTO) 0.3 K/uL (0-0.4); EOSINOPHILS % (AUTO) 2.9 % (0.0-4.0); HEMATOCRIT 39.8 % (36-48); HEMOGLOBIN 13.6 g/dL (12.0-16.0); LYMPHOCYTES # (AUTO) 3.4 K/uL (2.5-16.5); MEAN CORPUSCULAR HEMOGLOBIN 31 pg (27-31); MEAN CORPUSCULAR HGB CONC 34 g/dL (33-37); MEAN CORPUSCULAR VOLUME 90.7 fL (80-94); MONOCYTES # (AUTO) 0.6 K/uL (0.8-1.0); NEUTROPHILS # (AUTO) 5.4 K/uL (1.8-7.7); NEUTROPHILS % (AUTO) 55.5 % (42.2-75.2); PLATELET COUNT (AUTO) 464 K/uL (140-450); RED BLOOD CELL COUNT(AUTO) 4.38 MIL/uL (4.20-5.40); RED CELL DISTRIBUTION WIDTH 13.7 % (11.6-13.7); WHITE BLOOD COUNT (AUTO) 9.7 K/uL (4.8-10.8)
[2019-02-21 22:43] LABS: APPEARANCE,URINE CLEAR (CLEAR); BILIRUBIN,URINE NEGATIVE (NEGATIVE); BLOOD, URINE TRACE-I (NEGATIVE); COLOR,URINE YELLOW (YELLOW); LEUKOCYTE ESTERASE ,URINE NEGATIVE (NEGATIVE); NITRITE, URINE NEGATIVE (NEGATIVE); PH,URINE 5.5 (5.0-9.0); UGLUCOSE NEGATIVE (NEGATIVE)
[2019-02-21 22:52] LABS: ANION GAP 13.3 (8-16); CARBON DIOXIDE 28.6 mmol/L (21-32); POTASSIUM 3.9 mmol/L (3.5-5.1)
[2019-02-21 22:53] LABS: RBC,URINE 0-5 /HPF (0-5); WBC,URINE 0-5 /HPF (0-5)
[2019-02-21 22:59] LABS: ALBUMIN 3.6 g/dL (3.4-5.0); TOTAL BILIRUBIN 0.2 mg/dL (0.0-1.0)
--- NOTE | 2019-02-21 23:01 | NUR ---
PT AGREED TO CT WITHOUT CONTRAST, PT TO CT AT THIS TIME. EDMD MADE AWARE.
[2019-02-22 00:48] VITALS: BP 131/69
== END 2019-02-22 00:48 | disposition home or self-care (01) ==
LOC: MED 18:38
DX: M54.2 Cervicalgia (principal); M25.512 Pain in left shoulder; M25.521 Pain in right elbow; M25.522 Pain in left elbow; R07.9 Chest pain, unspecified; J45.909 Unspecified asthma, uncomplicated; R10.9 Unspecified abdominal pain; Z98.890 Other specified postprocedural states; Z88.6 Allergy status to analgesic agent; Z88.1 Allergy status to other antibiotic agents; Z88.5 Allergy status to narcotic agent; Z79.2 Long term (current) use of antibiotics; Z79.899 Other long term (current) drug therapy; W18.39XA Other fall on same level, initial encounter; Y93.89 Activity, other specified; Y92.59 Other trade areas as the place of occurrence of the external cause; Y99.8 Other external cause status
CPT/HCPCS: 36415; 70450; 71045; 72050; 72080; 72170; 72220; 73030; 73080; 73130; 74176; 80053; 81001; 81025; 83880; 84484; 85025; 93005; 96372; 99284; J3010; Q0092

== ENCOUNTER 2019-03-23 01:13 | Emergency (ER) | payer OTHER ==
[~2019-03-23] VITALS: Ht 167.6 cm; Wt 68.9 kg
[2019-03-23 01:20] VITALS: BP 172/101
--- NOTE | 2019-03-23 01:20 | NUR ---
TO BED # 01 AMBULATORY
--- NOTE | 2019-03-23 01:20 | NUR ---
63 yo female comes to er for c/o sob. pt stated she used inhaler x3 tonight and still felt sob. lungs diminished, exp wheezes noted. pt aaox4 sitting up in gurney. abd soft non distended. skin intact. gurney locked in lowest position. pmh: asthma, fibromyalgia, htn, hypothyroid allergies: levaquin, asa
--- NOTE | 2019-03-23 01:34 | NUR ---
Dr. Ortiz examining patient.
[2019-03-23] MEDS ORDERED: methylPREDNISolone SS 125 MG/2 ML VIAL IM ONE (01:35)
[2019-03-23] MEDS ORDERED: ALBUTEROL SULFATE/IPRATROPIU 3 ML SOL IH ONE (01:35)
[2019-03-23] MEDS ORDERED: BUDESONIDE 0.5 MG/2 ML NEBU INH ONE (02:00)
--- NOTE | 2019-03-23 02:32 | NUR ---
RT CALLED TO BEDSIDE FOR LAST BREATHING TREATMENT.
--- NOTE | 2019-03-23 02:38 | NUR ---
RT at bedside for breathing treatment.
[2019-03-23 02:53] VITALS: BP 167/101
--- NOTE | 2019-03-23 02:53 | NUR ---
Patient discharged with v/s stable. Written and verbal after care instructions given and explained. Patient alert, oriented and verbalized understanding of instructions. Ambulatory with steady gait. All questions addressed prior to discharge. ID band removed. Patient advised to follow up with PMD. Rx of Tessalon Perlse and Prednisone given. Patient educated on indication of medication including possible reaction and side effects. Opportunity to ask questions provided and answered.
== END 2019-03-23 02:53 | disposition home or self-care (01) ==
LOC: MED 01:13
DX: J40 Bronchitis, not specified as acute or chronic (principal); I10 Essential (primary) hypertension; F17.200 Nicotine dependence, unspecified, uncomplicated; J45.909 Unspecified asthma, uncomplicated; Z71.6 Tobacco abuse counseling; Z88.6 Allergy status to analgesic agent; Z88.1 Allergy status to other antibiotic agents; Z79.899 Other long term (current) drug therapy
CPT/HCPCS: 71045; 94640; 96372; 99284; J2930; J7620; J7626

== ENCOUNTER 2023-06-17 21:52 | Emergency (ER) | payer OTHER ==
[~2023-06-17] VITALS: Ht 167.6 cm; Wt 67.6 kg
[~2023-06-17 21:52] MED LIST changes: +LOSA-270 PO; -LOSA50TA1 PO; +NITR100C1 PO; +POTA10TA70 PO; +POTA10TA71 PO; -POTA10TE30 PO
[2023-06-17 22:45] VITALS: BP 164/92; PULSE 87; RESP 14; TEMP 97.8; O2SAT 98
[2023-06-17] MEDS ORDERED: IBUPROFEN 600 MG TAB PO ONE (22:50)
[2023-06-17] MEDS ORDERED: NAPR-54 PO (22:54)
[2023-06-17] MEDS ORDERED: PENI500T20 PO (22:54)
[2023-06-17] MEDS ORDERED: traMADol 50 MG TAB PO ONE (23:00)
[2023-06-17 23:06] VITALS: BP 146/89; PULSE 79; RESP 16; TEMP 98; O2SAT 98
== END 2023-06-17 23:06 | disposition home or self-care (01) ==
LOC: MED 21:52
DX: K08.89 Other specified disorders of teeth and supporting structures (principal); I11.9 Hypertensive heart disease without heart failure; J45.909 Unspecified asthma, uncomplicated; Z79.82 Long term (current) use of aspirin; Z88.8 Allergy status to other drugs, medicaments and biological substances; Z79.899 Other long term (current) drug therapy; Z90.49 Acquired absence of other specified parts of digestive tract; Z90.710 Acquired absence of both cervix and uterus
CPT/HCPCS: 99283